=== PATIENT | male | born 1970 | race Caucasian/White ===

== ENCOUNTER 2017-07-15 11:14 | Emergency (ER) | payer OTHER, BC ==
[~2017-07-15] VITALS: Ht 182.9 cm; Wt 100.0 kg
[2017-07-15 11:19] VITALS: BP 149/86; PULSE 95; RESP 17; O2SAT 97
[2017-07-15] MEDS ORDERED: MORPHINE SULFATE 4 MG/ML INJ IV PUSH ONE (11:30)
[2017-07-15] MEDS ORDERED: ONDANSETRON HCL 4 MG/2 ML VIAL IV PUSH ONE (11:30)
[2017-07-15] MEDS ORDERED: DOXA1TAB43 PO (11:31)
[2017-07-15] MEDS ORDERED: TAMS5CAP PO (11:31)
[2017-07-15] MEDS ORDERED: LEVO125T4 PO (11:31)
[2017-07-15] MEDS ORDERED: AMLO10TA2 PO (11:31)
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
[2017-07-15 12:37] VITALS: RESP 16
[2017-07-15 12:45] LABS: AUTOMATED NEUTROPHIL # 5.3 TH/MM3 (1.8-7.7); BASOPHIL # 0.1 TH/MM3 (0-0.2); BASOPHIL % 0.8 % (0.0-2.0); EOSINOPHIL # 0.1 TH/MM3 (0-0.4); HEMATOCRIT 44.5 % (39.0-51.0); HEMOGLOBIN 15.2 GM/DL (13.0-17.0); LYMPH % 25.4 % (9.0-44.0); MEAN CELL VOLUME 85.4 FL (80.0-100.0); MEAN CORPUSCULAR HEMOGLOBIN 29.1 PG (27.0-34.0); MEAN CORPUSCULAR HGB CONC 34.1 % (32.0-36.0); MEAN PLATELET VOLUME 8.3 FL (7.0-11.0); MONO % 5.8 % (0.0-8.0); MONOCYTE # 0.5 TH/MM3 (0-0.9); PLATELET COUNT 247 TH/MM3 (150-450); RED BLOOD COUNT 5.21 MIL/MM3 (4.50-5.90); RED CELL DISTRIBUTION WIDTH 13.4 % (11.6-17.2); WHITE BLOOD COUNT 7.9 TH/MM3 (4.0-11.0)
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
[2017-07-15 12:57] LABS: BICARBONATE 26.8 MEQ/L (21.0-32.0); CALCIUM 8.8 MG/DL (8.5-10.1); CREATININE 1.18 MG/DL (0.60-1.30)
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
[2017-07-15] MEDS ORDERED: ROBA500T PO (13:05)
[2017-07-15] MEDS ORDERED: DICL75TA PO (13:05)
[2017-07-15] MEDS ORDERED: HYDR-3516 PO (13:05)
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
[2017-07-15] MEDS ORDERED: KETOROLAC TROMETHAMINE 30 MG/ML (IVP) VIAL IV PUSH ONE (13:15)
== END 2017-07-15 13:53 | disposition home or self-care (01) ==
LOC: NEPE 11:14
DX: S09.90XA Unspecified injury of head, initial encounter (principal); S13.4XXA Sprain of ligaments of cervical spine, initial encounter; S40.011A Contusion of right shoulder, initial encounter; V59.49XA Driver of pick-up truck or van injured in collision with other motor vehicles in traffic accident, initial encounter; Y99.0 Civilian activity done for income or pay; I10 Essential (primary) hypertension
CPT/HCPCS: 70450; 70486; 71045; 72125; 72128; 72131; 73030; 80048; 85025; 96374; 96375; 99285; J1885; J2270; J2405

== ENCOUNTER 2017-07-30 19:42 | Emergency (ER) | payer OTHER, BC ==
[~2017-07-30 19:42] MED LIST: AMLO10TA2 PO; DICL75TA PO; DOXA1TAB43 PO; HYDR-3516 PO; LEVO125T4 PO; ROBA500T PO; TAMS5CAP PO
[2017-07-30 19:44] VITALS: BP 145/87; PULSE 82; RESP 20; TEMP 98.3; O2SAT 98
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
== END 2017-07-30 20:17 | disposition home or self-care (01) ==
LOC: PHEFT 19:42
DX: M62.838 Other muscle spasm (principal); S13.9XXA Sprain of joints and ligaments of unspecified parts of neck, initial encounter; R51 Headache; N40.0 Benign prostatic hyperplasia without lower urinary tract symptoms; I10 Essential (primary) hypertension; E07.9 Disorder of thyroid, unspecified; V43.52XA Car driver injured in collision with other type car in traffic accident, initial encounter; Z79.899 Other long term (current) drug therapy
CPT/HCPCS: 99282